=== PATIENT | female | born 1965 | race Caucasian/White ===

== ENCOUNTER → 2016-10-19 | Outpatient (CLI) | payer MEDICARE, MEDICAID ==
[~2016-10-19] MED LIST: ADVAIR 250/28 DISKUS IH; ALBUTEROL; AMOXICILLIN 8751 TAB PO; CYMBALTA 20MG20 MG PO; CYMBALTA 30MG30 MG PO; CYMBALTA 60MG60 MG PO; DARVOCET N; DARVON; DIFLUCAN PO; DIFLUCAN100 MG PO; DYAZIDE 25 MG-31 CAP PO; ELAVIL10 MG PO; ENDOCET 325 MG-1 TA1 PO; ERYTHROMYCIN; GABAPENTIN; MAALOX ANTACID1 TAB PO; MAXITROL OPHTH D5 ML OD; MIRALAX 17GM PK1 PKT PO; MORPHINE SULFAT30 M5 PO; NEURONTIN300 MG/CAP PO; NORCO 325 MG-51 TAB PO; NSAIDS; ORAMORPH SR30 MG PO; PERCOCET 325 MG1 TAB PO; PREVACID 30MG30 MG PO; PRILOSEC 20MG20 MG PO; QUESTRAN1 GM PO; QUESTRAN4 GM/9 GM PO; RT ADVAIR 228 DISKUS IH; SEROQUEL; SINGULAIR10 MG PO; SOMA 350MG350 MG/TAB PO; TEGRETOL; TETRACYCLINE 250MG; TRIAMTERENE/HCT1 CAP PO; VALIUM 10MG10 MG/TAB PO; ZANTAC15 MG/ML PO; ZOFRAN 4MG T4 MG/TAB PO; [UNRECOGNIZED DRUG - OTHER] PO
== END ==
LOC: MC.RAD 13:12
DX: Z12.31 Encounter for screening mammogram for malignant neoplasm of breast (principal); R92.1 Mammographic calcification found on diagnostic imaging of breast

== ENCOUNTER → 2017-03-15 | Outpatient (CLI) | payer MEDICARE, MEDICAID | LOC: BHSO 10:52 | DX: F41.1 Generalized anxiety disorder (principal) | CPT/HCPCS: 90791-AI ==

== ENCOUNTER → 2017-11-23 | Outpatient (REF) ==
[2017-11-23 19:12] LABS: THYROID STIMULATING HORMONE 0.999 uIU/mL (0.465-4.680)
== END ==
LOC: ZLAB.WCH 18:26
PROVIDERS: Internal Medicine
DX: Z01.89 Encounter for other specified special examinations (principal)

== ENCOUNTER → 2018-08-03 | Outpatient (REF) ==
[2018-08-03 19:00] LABS: THYROID STIMULATING HORMONE 1.29 uIU/mL (0.465-4.680)
== END ==
LOC: ZLAB.WCH 18:12
PROVIDERS: Internal Medicine
DX: Z01.89 Encounter for other specified special examinations (principal)